=== PATIENT | male | born 1975 | race American Indian/Alaskan Native ===

== ENCOUNTER 2019-03-14 06:29 | Emergency (ER) | payer MEDICAID ==
[2019-03-14 06:29] VITALS: BMI 27.8
[2019-03-14 06:49] VITALS: BP 123/71; PULSE 60; RESP 18; TEMP 98.5; O2SAT 99
--- NOTE | 2019-03-14 07:24 | ED PDOC ---
Arrival/HPI - General Chief Complaint: Lower Extremity Problem/Injury Historian: Patient - History of Present Illness Narrative History of Present Illness (Text): 03/14/19 07:21 A 43 year old male, whose past medical history includes whose past medical hi story includes feet blisters and NKDA, presents to the emergency department complaining of bilateral foot blisters for the past 2 days. Patient reports he does not walk a lot and states he just bought his shoes yesterday. Patient also notes he just received insurance. Patient denies any fever, shortness of breath, chest pain, or any other complaints. No PMD Time/Duration: < week (2 days) Symptom Onset: Gradual Symptom Course: Unchanged Activities at Onset: Light Context: Home Past Medical History - Provider Review Nursing Documentation Reviewed: Yes - Past History Past History: Non-Contributing - Infectious Disease Hx of Infectious Diseases: None - Tetanus Immunization Tetanus Immunization: Unknown - Past Medical History Past Medical History: No Previous - Cardiac Hx Cardiac Disorders: No - Pulmonary Hx Respiratory Disorders: No - Neurological Hx Neurological Disorder: No - HEENT Hx HEENT Disorder: No - Renal Hx Renal Disorder: No - Endocrine/Metabolic Hx Endocrine Disorders: No - Hematological/Oncological Hx Blood Disorders: No - Integumentary Hx Dermatological Disorder: No - Musculoskeletal/Rheumatological Other/Comment: varicose veins - Gastrointestinal Hx Gastrointestinal Disorders: No - Genitourinary/Gynecological Hx Genitourinary Disorders: No - Psychiatric Hx Psychophysiologic Disorder: No Hx Substance Use: No - Past Surgical History Past Surgical History: No Previous - Anesthesia Hx Anesthesia: No - Suicidal Assessment Feels Threatened In Home Enviroment: No Family/Social History - Physician Review Nursing Documentation Reviewed: Yes Family/Social History: No Known Family HX Smoking Status: Never Smoked Hx Alcohol Use: No Hx Substance Use: No Substance used: herion/cocaine Allergies/Home Meds Allergies/Adverse Reactions: Allergies No Known Allergies Allergy (Verified 03/14/19 06:43) Review of Systems - Physician Review All systems were reviewed & negative as marked: Yes - Review of Systems Constitutional: absent: Fevers Respiratory: absent: SOB Cardiovascular: absent: Chest Pain Skin: Other (bilateral foot blisters) Physical Exam Vital Signs Reviewed: Yes Vital Signs Temp Pulse Resp BP Pulse Ox 03/14/19 06:49 98.5 F 60 18 123/71 99 Temperature: Afebrile Blood Pressure: Normal Pulse: Regular Respiratory Rate: Normal Appearance: Positive for: Well-Appearing, Non-Toxic, Comfortable Pain Distress: None Mental Status: Positive for: Alert and Oriented X 3 - Systems Exam Head: Present: Atraumatic, Normocephalic Pupils: Present: PERRL Extroacular Muscles: Present: EOMI Conjunctiva: Present: Normal Respiratory/Chest: Present: Clear to Auscultation, Good Air Exchange. No: Respiratory Distress, Accessory Muscle Use Cardiovascular: Present: Regular Rate and Rhythm, Normal S1, S2. No: Murmurs Lower Extremity: Present: Other (hypertrophic to great toes bilaterally with slight fungal infection, blisters on plantar aspect under 4th toe bilaterally) Neurological: Present: GCS=15, CN II-XII Intact, Speech Normal Skin: Present: Warm, Dry, Normal Color. No: Rashes Psychiatric: Present: Alert, Oriented x 3, Normal Insight, Normal Concentration Medical Decision Making ED Course and Treatment: 03/14/19 07:21 Impression: 43 year old male presenting to the emergency room complaining of foot blisters. Plan: -- Reassess and disposition Prior Visits: Notes and results from previous visits were reviewed. Progress Notes: - Scribe Statement The provider has reviewed the documentation as recorded by the Joyce Horton All medical record entries made by the Scribe were at my direction and personally dictated by me. I have reviewed the chart and agree that the record accurately reflects my personal performance of the history, physical exam, medical decision making, and the department course for this patient. I have also personally directed, reviewed, and agree with the discharge instructions and disposition. Disposition/Present on Arrival - Present on Arrival Any Indicators Present on Arrival: No History of DVT/PE: No History of Uncontrolled Diabetes: No Urinary Catheter: No History of Decub. Ulcer: No History Surgical Site Infection Following: None - Disposition Have Diagnosis and Disposition been Completed?: Yes Diagnosis: Friction blister of the foot, Tinea pedis Disposition: HOME/ ROUTINE Disposition Time: 07:20 Condition: GOOD Discharge Instructions (ExitCare): Athlete's Foot (DC) Additional Instructions: THAIS WINTER, thank you for letting us take care of you today. The emergency medical care you received today was directed at your acute symptoms. If you were prescribed any medication, please fill it and take as directed. It may take several days for your symptoms to resolve. Return to the Emergency Department if your symptoms worsen, do not improve, or if you have any other problems. Please contact your doctor or call one of the physicians/clinics you have been referred to that are listed on the Patient Visit Information form that is included in your discharge packet. Bring any paperwork you were given at discharge with you along with any medications you are taking to your follow up visit. Our treatment cannot replace ongoing medical care by a primary care provider outside of the emergency department. Thank you for allowing the [facility] team to be part of your care today. Follow up with our medical and podiatry clinic early next week for re-evaluation and further management. Prescriptions: Tolnaftate [Tinactin Jock Itch] 1 appl TP BID #1 cre Referrals: [facility] [Outside] - Follow up with primary Podiatry Clinic [Outside] - Follow up with primary Hallie Vega MD [Medical Doctor] - Follow up with primary Forms: [employer] (Andorran)
== END 2019-03-14 07:36 | disposition home or self-care (01) ==
LOC: ED 06:29
DX: S90.822A Blister (nonthermal), left foot, initial encounter (principal); S90.821A Blister (nonthermal), right foot, initial encounter; X58.XXXA Exposure to other specified factors, initial encounter; B35.3 Tinea pedis

== ENCOUNTER 2019-03-15 16:28 | Emergency (ER) | payer SELFPAY ==
--- NOTE | 2019-03-15 17:14 | ED PDOC ---
Arrival/HPI - General Chief Complaint: Lower Extremity Problem/Injury Time Seen by Provider: 03/15/19 17:08 Historian: Patient - History of Present Illness Narrative History of Present Illness (Text): 18:41 43 y/o male with no significant PMH presents to the ED c/o bilateral leg pain x several months. Pain is located to medial thighs and knees bilaterally. He has not taken any medication for pain. Seen here yesterday in ED for blisters on bilateral feet and discharged home. Pt was recently released from alf last week. Denies trauma/injury, fever, chills, abdominal pain, SOB, chest pain, nausea, vomiting, extremity numbness/weakness/paresthesias, or any other associated complaints. Past Medical History - Provider Review Nursing Documentation Reviewed: Yes - Past History Past History: Non-Contributing - Infectious Disease Hx of Infectious Diseases: None - Tetanus Immunization Tetanus Immunization: Unknown - Past Medical History Past Medical History: No Previous - Cardiac Hx Cardiac Disorders: No - Pulmonary Hx Respiratory Disorders: No - Neurological Hx Neurological Disorder: No - HEENT Hx HEENT Disorder: No - Renal Hx Renal Disorder: No - Endocrine/Metabolic Hx Endocrine Disorders: No - Hematological/Oncological Hx Blood Disorders: No - Integumentary Hx Dermatological Disorder: No - Musculoskeletal/Rheumatological Other/Comment: varicose veins - Gastrointestinal Hx Gastrointestinal Disorders: No - Genitourinary/Gynecological Hx Genitourinary Disorders: No - Psychiatric Hx Psychophysiologic Disorder: No Hx Substance Use: No - Past Surgical History Past Surgical History: No Previous - Anesthesia Hx Anesthesia: No - Suicidal Assessment Feels Threatened In Home Enviroment: No Family/Social History - Physician Review Nursing Documentation Reviewed: Yes Family/Social History: No Known Family HX Smoking Status: Never Smoked Hx Alcohol Use: No Hx Substance Use: No Substance used: herion/cocaine Allergies/Home Meds Allergies/Adverse Reactions: Allergies No Known Allergies Allergy (Verified 03/15/19 16:59) Physical Exam Vital Signs Reviewed: Yes Vital Signs Temp Pulse Resp BP Pulse Ox 03/15/19 17:02 97.7 F 101 H 18 106/72 94 L Temperature: Afebrile Blood Pressure: Normal Pulse: Tachycardic Respiratory Rate: Normal Appearance: Positive for: Well-Appearing, Non-Toxic, Comfortable Pain Distress: None Mental Status: Positive for: Alert and Oriented X 3 - Systems Exam Head: Present: Atraumatic, Normocephalic Pupils: Present: PERRL Extroacular Muscles: Present: EOMI Conjunctiva: Present: Normal Mouth: Present: Moist Mucous Membranes Neck: Present: Normal Range of Motion Respiratory/Chest: Present: Clear to Auscultation, Good Air Exchange. No: Respiratory Distress, Accessory Muscle Use Cardiovascular: Present: Regular Rate and Rhythm, Normal S1, S2, Peripheal Pulses Present Abdomen: No: Tenderness Upper Extremity: Present: Normal ROM Lower Extremity: Present: NORMAL PULSES, Normal ROM, Tenderness (bilateral medial thighs and medial knee joint lines), Neurovascularly Intact, Capillary Refill < 2 s, Other (blisters to plantar surface of bilateral feet; no signs of secondary infection; varicose veins to bilateral lower legs). No: Edema, CALF TENDERNESS, Erythema, Deformity, Temperature Abnormalties Neurological: Present: GCS=15, Speech Normal, Motor Func Grossly Intact, Normal Sensory Function, Gait Normal Skin: Present: Warm, Dry, Other (papules to bilateral extremities, upper and lower as well as lower abdomen, some papules with scabbing and erythema, others chronic hyperpigmented areas of skin. suspicious for folliculitis.) Psychiatric: Present: Alert, Oriented x 3, Normal Insight, Normal Concentration Medical Decision Making ED Course and Treatment: Initial Plan: * Venous Duplex Lower Extremities Bilaterally * Bilateral Knee XR * Toradol * Reassess and Disposition 18:37 Prelim read negative for DVT Bilateral knee XR read as negative for acute fracture, dislocation, or joint space narrowing. Bilateral feet blisters dressed by me. Advised PMD/clinic, podiatry, and orthopedic followup. Diagnostic testing results and plan of care discussed with patient. Strict instructions given regarding prescription use, importance of followup, and signs/symptoms to return to ER including fever, chills, worsening pain, numbness, weakness, paresthesias, or any other new/worsening symptoms. Pt verbalized understanding of discussion. Patient is A&Ox3, ambulating with steady gait, with vital signs stable for discharge. Disposition/Present on Arrival - Present on Arrival Any Indicators Present on Arrival: No History of DVT/PE: No History of Uncontrolled Diabetes: No Urinary Catheter: No History of Decub. Ulcer: No History Surgical Site Infection Following: None - Disposition Have Diagnosis and Disposition been Completed?: Yes Diagnosis: Folliculitis, Leg pain, Varicose veins of both lower extremities Disposition: HOME/ ROUTINE Disposition Time: 18:50 Patient Plan: Discharge Condition: STABLE Discharge Instructions (ExitCare): Varicose Veins and Other Vein Disease in the Legs, Folliculitis (DC) Additional Instructions: Bactrim every 12 hours for 7 days Mupirocin on red lesions daily for 7 days Ibuprofen every 8 hours as needed for pain, take with food Followup with podiatry within 2 days Followup with orthopedics within 2 days Followup with primary within 2 days Return to ER with any new/worsening symptoms Prescriptions: Ibuprofen [Motrin Tab] 600 mg PO Q8 PRN #30 tab PRN Reason: Pain, Moderate (4-7) Mupirocin 2% Ointment [Bactroban Ointment] 1 appl TP DAILY #1 tube Sulfamethoxazole/Trimethoprim [Bactrim DS 800 mg-160 mg] 1 tab PO Q12H #14 tab Referrals: Podiatry Clinic [Outside] - Follow up with primary Richar Palma MD [Staff Provider] - Follow up with primary Forms: [employer] (Russian)
[2019-03-15 17:32] VITALS: RESP 18; BMI 37.3
[2019-03-15 19:04] VITALS: BP 116/66; PULSE 81; TEMP 98; O2SAT 97
--- NOTE | 2019-03-16 08:11 | US ---
HISTORY: Leg pain and swelling. Evaluate for DVT PHYSICIAN(S): Mikhail Kumar MD. TECHNIQUE: Duplex sonography and color-flow Doppler with graded compression were used to evaluate the deep venous systems of both lower extremities. FINDINGS: The visualized deep venous systems of both lower extremities are sonographically normal and compressible. Normal wave forms and augmentation are seen. There is no sonographic evidence for deep venous thrombosis in the visualized segments of both lower extremities. IMPRESSION: No sonographic evidence for deep venous thrombosis in the visualized segments of both lower extremities.
--- NOTE | 2019-03-16 10:14 | RAD ---
Date of service: 03/15/2019 PROCEDURE: Bilateral Knee Radiographs. HISTORY: medial knee pain COMPARISON: None. TECHNIQUE: 4 views obtained. FINDINGS: BONES: Right Knee: No acute fracture. Left Knee: No acute fracture. JOINTS: Right Knee: Unremarkable. Left knee: Unremarkable SOFT TISSUES: Right Knee: Normal. Left Knee: Normal. JOINT EFFUSION: Right Knee: None. Left Knee: None. OTHER FINDINGS: None. IMPRESSION: No demonstrated fracture or dislocation.
== END 2019-03-15 19:17 | disposition home or self-care (01) ==
LOC: ED 16:28
DX: I83.93 Asymptomatic varicose veins of bilateral lower extremities (principal); M79.605 Pain in left leg; M79.604 Pain in right leg; L73.9 Follicular disorder, unspecified
CPT/HCPCS: 73560; 93970; 96372; 99284; J1885

== ENCOUNTER 2019-03-20 17:01 | Emergency (ER) | payer SELFPAY ==
[2019-03-20 17:03] VITALS: BP 152/83; PULSE 86; RESP 18; TEMP 98.2; O2SAT 98; BMI 28.5
[2019-03-20] MEDS ORDERED: Lidocaine 1% Inj (20ml) IJ STA (17:42)
[2019-03-20] MEDS ORDERED: Lidocaine 1% Inj (20ml) ONE (17:45)
--- NOTE | 2019-03-20 17:51 | ED PDOC ---
Arrival/HPI - General Chief Complaint: Abnormal Skin Integrity Time Seen by Provider: 03/20/19 17:34 Historian: Patient - History of Present Illness Narrative History of Present Illness (Text): 03/20/19 17:49 43 year old M with no significant pmh presents with laceration to palm of right hand. Patient report receiving the laceration while climbing a fence yesterday morning. He admits to receiving a tetanus shot within the past 5yrs. Patient denies any fevers, chills, headache, dizziness, chest pain, shortness of breath, cough, abdominal pain, nausea, vomiting, diarrhea, or any other complaint. Symptom Onset: Sudden Symptom Course: Unchanged Past Medical History - Provider Review Nursing Documentation Reviewed: Yes - Past History Past History: Non-Contributing - Infectious Disease Hx of Infectious Diseases: None - Tetanus Immunization Tetanus Immunization: Unknown - Past Medical History Past Medical History: No Previous - Cardiac Hx Cardiac Disorders: No - Pulmonary Hx Respiratory Disorders: No - Neurological Hx Neurological Disorder: No - HEENT Hx HEENT Disorder: No - Renal Hx Renal Disorder: No - Endocrine/Metabolic Hx Endocrine Disorders: No - Hematological/Oncological Hx Blood Disorders: No - Integumentary Hx Dermatological Disorder: No - Musculoskeletal/Rheumatological Other/Comment: varicose veins - Gastrointestinal Hx Gastrointestinal Disorders: No - Genitourinary/Gynecological Hx Genitourinary Disorders: No - Psychiatric Hx Psychophysiologic Disorder: No Hx Substance Use: No - Past Surgical History Past Surgical History: No Previous - Anesthesia Hx Anesthesia: No - Suicidal Assessment Feels Threatened In Home Enviroment: No Family/Social History - Physician Review Nursing Documentation Reviewed: Yes Family/Social History: Unknown Family HX Smoking Status: Never Smoked Hx Alcohol Use: No Hx Substance Use: No Substance used: herion/cocaine Allergies/Home Meds Allergies/Adverse Reactions: Allergies No Known Allergies Allergy (Verified 03/20/19 17:38) Review of Systems - Physician Review All systems were reviewed & negative as marked: Yes - Review of Systems ENT: absent: Sore Throat, Rhinorrhea, Epistaxis Respiratory: absent: SOB, Cough, Wheezing Cardiovascular: absent: Chest Pain, Palpitations Gastrointestinal: absent: Abdominal Pain, Diarrhea, Nausea, Vomiting Genitourinary Male: absent: Dysuria Skin: Laceration (right palm) Neurological: absent: Headache, Dizziness Physical Exam - Physical Exam Narrative Physical Exam (Text): 03/20/19 17:55 Gen: VS reviewed, alert, well developed, well nourished, nontoxic, mild distress. ENT: normal pharynx. Eye: EOMI, PERRL. Neck: no JVD, supple, no adenopathy. CV: regular rate, regular rhythm, no rubs, no murmur, no gallops, S1, S2, pulses equal and strong. Pulm: no distress, clear to auscultation, no wheeze, no rhonchi, breath sounds equal, no rales. Abd: soft, nontender, no guarding, no rebound, no rigidity, normal bowel sounds. Ext: no edema. Skin: good color, no cyanosis. V shaped laceration on palm of right hand, full strength intact. No overt tendon injury. Psych: responds appropriately to questions, normal affect. Neuro: oriented x 3, CN2-12 intact grossly, motor intact, sensation intact. Vital Signs Temp Pulse Resp BP Pulse Ox 03/20/19 17:02 98.2 F 86 18 152/83 H 98 Medical Decision Making ED Course and Treatment: 03/20/19 17:49 Impression: 43 year old M presents with laceration to palm of right hand Plan: -- Lidocaine -- Lac repair -- Reassess and disposition Progress Notes: PROCEDURE: LACERATION REPAIR Performed by the emergency provider Location: right palm hand Length: 4 cm Description: clean wound edges,no foreign bodies Distal CMS: Normal. No deficits. Neurovascularly intact.no tendon exposure Anesthesia: Lidocaine 1% without epi Preparation: The wound was cleaned with Betadyne surgical scrub. The area was prepped and draped in the usual sterile fashion. Exploration: The wound was explored and no foreign bodies were found. Procedure: The wound was closed with 4-0 nylon. There was adequate approximation. In total, 1 suture continuous running were used. Post-Procedure: Good closure and hemostasis. The patient tolerated the procedure well and there were no complications. CSM remains intact. Post procedure dressing applied. hand laceration, scrubbed by myself, tetanus up to date, clean wound base, no tendon involvement, wound approximated well, splint applied, empiric abx, return in - to have sutures removed. - Medication Orders Current Medication Orders: Discontinued Medications Lidocaine HCl (Lidocaine 1% (20ml)) 20 ml IJ STAT STA Stop: 03/20/19 17:43 - Scribe Statement The provider has reviewed the documentation as recorded by the Joyce Bahena All medical record entries made by the Sandraibsky were at my direction and personally dictated by me. I have reviewed the chart and agree that the record accurately reflects my personal performance of the history, physical exam, medical decision making, and the department course for this patient. I have also personally directed, reviewed, and agree with the discharge instructions and disposition. Disposition/Present on Arrival - Present on Arrival Any Indicators Present on Arrival: No History of DVT/PE: No History of Uncontrolled Diabetes: No Urinary Catheter: No History of Decub. Ulcer: No History Surgical Site Infection Following: None - Disposition Have Diagnosis and Disposition been Completed?: Yes Diagnosis: Hand laceration Disposition: HOME/ ROUTINE Disposition Time: 18:26 Patient Plan: Discharge Patient Problems: Current Active Problems Problem Status Onset Hand laceration Acute Condition: STABLE Discharge Instructions (ExitCare): Laceration Repair With Stitches (DC) Additional Instructions: return in 10-14 days to have the sutures removed. take the antibiotics to prevent infection. return for any signs of infection of the wound such increased pain, increased redness,increased swelling of the wound. Prescriptions: Cephalexin [cephalexin] 500 mg PO BID 5 Days #10 cap Referrals: PCP,NO [Primary Care Provider] - Follow up with primary Forms: [employer] (Qatari)
[2019-03-20] MEDS ORDERED: Bacitracin 500 Units/gm Oint Foilpak UD ONE (18:49)
== END 2019-03-20 19:18 | disposition home or self-care (01) ==
LOC: ED 17:01
DX: S61.411A Laceration without foreign body of right hand, initial encounter (principal); W45.8XXA Other foreign body or object entering through skin, initial encounter